=== PATIENT | male | born 1960 | race Two or more races ===

== ENCOUNTER → 2024-09-07 | Outpatient (CLI) | payer MEDICARE, MEDICAID, SELFPAY ==
--- NOTE | 2024-09-07 08:30 | XR_ITS ---
Examination: CT chest, without intravenous contrast. Sagittal and coronal 2-D reconstructions. Exam date and time: September 07, 2024 0842 hours Comparison November 30, 2022 INDICATIONS: Smoking history 20 years CTDI:vol (mGy) 12.3 DLP: (mGycm) 416 Technique: Multiple 3.0 mm axial sections of the chest to been obtained. Bone and lung density settings are obtained. Sagittal and coronal 2-D reconstructions have been obtained. Low dose protocols were performed. One or more of the following dose reduction techniques were used; automated exposure control, adjustment of the mA and/or KV according to patient size, use of iterative reconstruction technique. Findings: Thoracic aortic calcification no aneurysmal dilatation Pulmonary artery segments are not enlarged Mild to moderate enlargement left atrium left ventricle No mediastinal lymphadenopathy Mild vascular congestion No pneumonia, pulmonary edema, pleural disease or pulmonary nodules No visualized liver splenic lesion Contracted gallbladder No pancreatic or adrenal mass Moderate osteopenia IMPRESSION: No pneumonia, pulmonary edema, pleural disease or pulmonary nodules
== END | disposition home or self-care (01) ==
PROVIDERS: PCP Family Medicine; Referring Provider Family Medicine; Visit Provider Family Medicine
DX: F17.200 Nicotine dependence, unspecified, uncomplicated (principal)
CPT/HCPCS: 71250